=== PATIENT | male | born 1955 | race Caucasian/White ===

== ENCOUNTER 2018-10-27 16:13 | Emergency (ER) | payer OTHER, SELFPAY ==
[2018-10-27 16:14] VITALS: BP 122/78; PULSE 60; RESP 18; TEMP 36.1; O2SAT 99; BMI 27.6
--- NOTE | 2018-10-27 16:55 | ED.VISSUMM ---
- ER Visit Summary Date of Service: 10/27/18 Chief Complaint: Right leg pain History of Present Illness: The patient is a 63 M presenting with right leg pain and foot swelling. Patient states he started having pain in his right leg on Tuesday. He denies injuries. He has noticed increasing swelling in his right foot today. He went to urgent care and was sent to the ED to rule out DVT. 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 He denies chest pain or shortness of breath. He has a family history of DVT, no personal history of DVT. Physical Examination: Vitals are stable. Patient is afebrile. Alert no acute distress. Pulse ox 99% on room air. HEENT exam is unremarkable. Neck is supple. Lungs are clear and equal bilaterally. Heart is regular rate and rhythm. Abdomen is soft nontender nondistended. Extremities right midfoot swelling with mild erythema. Normal pulses. Mild calf tenderness. Skin is warm and dry. Remainder of exam is unremarkable. Emergency Department Course and Treatment: CBC, chemistries unremarkable. Venous Doppler shows DVT right proximal to distal superficial femoral vein. Patient was started on Eliquis. Advised follow-up with his primary care physician. Advised return to ED for worsening complaints. Disposition: Discharge home Impression: DVT right lower extremity This note was generated with [employer] dictation software. It may contain incorrect words, spelling, and punctuation that were not noted in review of the chart prior to signing ED Disposition - Plan for ED Patient: Instructions: Deep Vein Thrombosis Prescriptions: Apixaban [Eliquis] 5 mg PO BID #74 tab Prescription Printed Referrals: Yann Deleon MD [Primary Care Provider] -
--- NOTE | 2018-10-27 17:04 | US_ITS ---
We are attempting to reach an attending provider to discuss findings. An addendum with communication details will be sent when the communication is complete. STUDY: VENOUS DOPPLER ULTRASOUND - BILATERAL LOWER EXTREMITIES REASON FOR EXAM: Male, 63 years old. Right leg and foot pain TECHNIQUE: Ultrasound evaluation of the deep vein system to include wooten-scale imaging and compression was performed. Wooten-scale imaging and Doppler sonographic evaluation, including duplex spectral analysis and qualitative color flow sonography, was performed. COMPARISON: None. FINDINGS: RIGHT LEG Common Femoral Vein: Internal echoes are demonstrated within the common right femoral vein. Common Femoral Vein/Greater Saphenous Junction: Internal echoes are noted. Deep Femoral Vein: Not imaged Femoral Proximal: Internal echoes are noted. There is no compression. Femoral Middle: Internal echoes are noted. There is no compression. Femoral Distal: Internal echoes are noted. There is no compression. Popliteal Vein: Normal compression, spontaneity and augmentation. Normal color Doppler. Posterior Tibial Vein: Not imaged Peroneal Vein: Not imaged LEFT LEG Common Femoral Vein: Normal compression, spontaneity and augmentation. Normal color Doppler. Common Femoral Vein/Greater Saphenous Junction: Normal compression, spontaneity and augmentation. Normal color Doppler. Deep Femoral Vein: Not imaged Femoral Proximal: Normal compression. No internal echoes are seen. Femoral Middle: Normal compression, spontaneity and augmentation. Normal color Doppler. Femoral Distal: Normal compression. No internal echoes are seen. Popliteal Vein: Normal compression, spontaneity and augmentation. Normal color Doppler. Posterior Tibial Vein: Normal compression. No internal echoes. Peroneal Vein: Normal compression. No internal echoes. US/Venous Duplex Imag/Victor Manuel Extrem IMPRESSION: Deep venous thrombosis noted in the right proximal to distal superficial femoral vein. Electronically Signed: Ash Jauregui MD at 19:16 EDT , Service support ,
--- NOTE | 2018-10-27 18:53 | ED.DEP ---
ED Disposition - Plan for ED Patient: Instructions: Deep Vein Thrombosis Prescriptions: Apixaban [Eliquis] 5 mg PO BID #74 tablet Referrals: Yann Deleon MD [Primary Care Provider] -
[2018-10-27 19:48] LABS: Absolute Lymphocyte Count 2.56 X10^3/uL (0.83-4.51); Absolute Neutrophil Count 3.1 X10^3/uL (2.0-7.7); Basophil# 0.07 X10^3/uL; Basophil% 1.1 % (0-1); Eosinophil# 0.32 X10^3/uL; Eosinophils% 4.9 % (0-5); Hematocrit 41.6 % (40-54); Hemoglobin 14.4 g/dL (13.0-16.5); Lymphocyte # 2.56 X10^3/ul (4.0); Lymphocyte % 38.9 % (19-41); Mean Corp Hgb Conc 34.6 g/dL (32-36); Mean Corpuscular Hgb 29.6 pg (27.0-32.0); Mean Corpuscular Volume 85.4 fL (80-94); Mean Platelet Vol. 9.9 fl (6.2-12.0); Monocyte# 0.53 X10^3/uL; Monocyte% 8.1 % (0-10); NRBC Flagged by Analyzer 0 % (0-5); Neutrophil # 3.09 X10^3/uL (2.7-7.7); Neutrophil % 46.8 % (47-70); Platelet Count 208 K/mm3 (150-450); RBC Distribution Width CV 12.3 % (11.6-14.6); RBC Distribution Width SD 38.5 fl (35.1-43.9); Red Blood Count 4.87 M/mm3 (4.6-6.2); White Blood Count 6.6 K/mm3 (4.4-11.0)
[2018-10-27 20:01] LABS: Anion Gap 4 (5-15); BUN 13 mg/dL (7-18); Calcium,Total 8.6 mg/dL (8.5-10.1); Chloride 110 mmol/L (98-107); EST Glomerular Filtration Rate 81 mL/min (>60); Est Glom Filt Rate - Afr Amer 98 mL/min (>60); Glucose 89 mg/dL (74-106); Potassium 3.7 mmol/L (3.5-5.1); Sodium Level 141 mmol/L (136-145)
[2018-10-27 20:29] VITALS: BP 123/74; PULSE 49; RESP 15; O2SAT 98
[2018-10-27] MEDS: APIXABAN 5 MG TABLET 10 MG PO (20:29)
== END 2018-10-27 20:35 | disposition home or self-care (01) ==
PROVIDERS: Emergency Provider Emergency Medicine; Family Provider Family Medicine; PCP Family Medicine
DX: I82.4Z1 Acute embolism and thrombosis of unspecified deep veins of right distal lower extremity (principal)
CPT/HCPCS: 80048; 85025; 93970; 99283

== ENCOUNTER → 2023-07-27 | Outpatient (CLI) | payer MEDICARE, OTHER, SELFPAY ==
--- NOTE | 2023-07-27 06:33 | MRI_ITS ---
STUDY: MRI LUMBAR SPINE WITHOUT CONTRAST REASON FOR EXAM: Male, 68 years old. pain TECHNIQUE: Standardized fat and water weighted pulse sequences were obtained in the sagittal and axial planes. COMPARISON: Lumbar spine x-rays July 14, 2023 FINDINGS: T12-L1: Normal endplates. Normal disc height, hydration and morphology. Normal bilateral facet joints. Normal central canal and bilateral lateral recesses. Normal bilateral intervertebral neural foramina. Normal lumbar lordosis. There is no substantial scoliosis. Normal conus medullaris that terminates at T12-L1 L1-2: Normal endplates. Normal disc height, desiccation and normal morphology.. Normal bilateral facet joints. Normal central canal and bilateral lateral recesses. Normal bilateral intervertebral neural foramina. L2-3: Normal endplates. Normal disc height, desiccation and normal morphology.. Normal bilateral facet joints. Normal central canal and bilateral lateral recesses. Normal bilateral intervertebral neural foramina. L3-4: Normal endplates. Normal disc height, desiccation minimal annular bulge. Normal bilateral facet joints. Normal central canal and bilateral lateral recesses. Minor bilateral neural foraminal encroachment. L4-5: Normal endplates. Normal disc height, desiccation and small bilateral foraminal disc protrusions slightly larger on the right.. Facet arthropathy and thickening of ligamenta flava more severe on the right Normal central canal and bilateral lateral recesses. Moderate left neural foraminal stenosis and more severe narrowing on the right. L5-S1: Grade 1 spondylolisthesis and bilateral spondylolysis Normal endplates. Narrowed disc space and desiccation of the disc with mild bulging disc osteophyte complex.. Normal bilateral facet joints. Normal central canal and bilateral lateral recesses. Normal bilateral intervertebral neural foramina. Normal visualized sacral ala. Normal visualized paraspinous soft tissue structures. No significant change since prior exam given inherent differences in imaging modalities MRI/Spine Lumbar (Routine) IMPRESSION: No evidence for acute fracture or other significant bony pathology.. Minor bilateral neural foraminal stenosis at L3-4 secondary to minimal annular bulge More severe bilateral neural foraminal stenosis worse on the right secondary to disc disease and facet arthropathy at L4-5 Electronically Signed: Caleb Ramos MD at 17:48 EDT ,
== END | disposition home or self-care (01) ==
PROVIDERS: PCP Family Medicine; Referring Provider Orthopaedic Surgery Orthopaedic Surgery of the Spine; Visit Provider Orthopaedic Surgery Orthopaedic Surgery of the Spine
DX: M43.16 Spondylolisthesis, lumbar region (principal)
CPT/HCPCS: 72148